=== PATIENT | male | born 1965 | race Two or more races ===

== ENCOUNTER 2024-04-09 16:46 | Emergency (ER) | payer BC, MEDICAID, OTHER ==
[~2024-04-09] VITALS: Ht 170.2 cm; Wt 102.3 kg
[2024-04-09 16:50] VITALS: BP 138/106; PULSE 85; RESP 18; O2SAT 96
--- NOTE | 2024-04-09 17:35 | ED.PDOC ---
History of Present Illness HPI Comments 59-year-old male presents with significant other for complaint of open wound to left forearm around elbow region, today. Patient comments on wound sutures coming apart after having them placed during a skin cancer removal procedure that was performed by his education and training manager, today. He comments only lying on his couch when said sutures came apart and his wound haven been actively bleeding since. He denies having any additional associated symptoms at this time. Chief Complaint: Wound Check Time Seen by MD: 17:00 Reviewed Notes: Nurses Notes, Medications, Allergies Allergies: Coded Allergies: NO KNOWN ALLERGIES (Unverified , 04/09/24) Information Source: Patient Mode of Arrival: Ambulatory Severity: Moderate Timing: Hours Duration: Since onset Prehospital treatment: None Past Medical History PAST MEDICAL HISTORY: Cancer (Skin cancer) Surgical History: Denies all surgeries Family History Family History: Reviewed,noncontributory to illness, No family hx of Cancer, No family hx of DM, No family hx of Heart esther, No family hx of HTN, No family hx ofKidney esther, No family hx of Liver esther, No family hx of Lung esther, No family hx of Stroke Social History Smoker: Non-Smoker Alcohol: Denies ETOH Use Drugs: Denies Drug Use Lives In: Home Constitutional: denies: chills, diaphoresis, fatigue, fever, malaise, sweats, weakness, others EENTM: denies: blurred vision, double vision, ear bleeding, ear discharge, ear drainage, ear pain, ear ringing, eye pain, eye redness, hearing loss, mouth pain, mouth swelling, nasal discharge, nose bleeding, nose congestion, nose pain, photophobia, tearing, throat pain, throat swelling, voice changes, others Respiratory: denies: cough, hemoptysis, orthopnea, SOB at rest, shortness of breath, SOB with excertion, stridor, wheezing, others Cardiovascular: denies: chest pain, dizzy spells, diaphoresis, Dyspnea on exertion, edema, irregular heart beat, left arm pain, lightheadedness, palpitations, PND, syncope, others Gastrointestinal: denies: abdomen distended, abdominal pain, blood streaked bowels, constipated, diarrhea, dysphagia, difficulty swallowing, hematemesis, melena, nausea, poor appetite, poor fluid intake, rectal bleeding, rectal pain, vomiting, others Genitourinary: denies: burning, dysuria, flank pain, frequency, hematuria, incontinence, penile discharge, penile sore, pain, testicle pain, testicle swelling, urgency, others Neurological: denies: dizziness, fainting, headache, left sided numbness, left sided weakness, numbness, paresthesia, pre-existing deficit, right sided numbness, right sided weakness, seizure, speech problems, tingling, tremors, weakness, others Musculoskeletal: denies: back pain, gout, joint pain, joint swelling, muscle pain, muscle stiffness, neck pain, others Integumetry: reports: wounds (Dehisced surgical site on lateral left forearm.); denies: bruises, change in color, change in hair/nails, dryness, laceration, lesions, lumps, rash, others Allergic/Immunocompromised: denies: Difficulty Healing, Frequent Infections, Hives, Itching, others Hematologic/Lymphatic: denies: anemia, blood clots, easy bleeding, easy bruising, swollen glands, others Endocrine: denies: excessive hunger, excessive sweating, excessive thirst, excessive urination, flushing, intolerance to cold, intolerance to heat, unexplained weight gain, unexplained weight loss, others Psychiatric: denies: anxiety, bipolar disorder, depression, hopeless, panic d isorder, schizophrenia, sleepless, suicidal, others All Other Systems: Reviewed and Negative (Negative unless otherwise stated above or in HPI) Physical Exam General Appearance: No Apparent Distress (Patient was in no distress at time of evaluation.), Normal HEENT: Normal ENT Inspection, Pharynx Normal, TMs Normal Neck: Full Range of Motion, Non-Tender, Normal, Normal Inspection Respiratory: Chest Non-Tender, Lungs Clear, No Accessory Muscle Use, No Respiratory Distress, Normal Breath Sounds Cardiovascular: No Edema, No JVD, No Murmur, No Gallop, Normal Peripheral Pulses, Regular Rate/Rhythm Breast Exam: Deferred Gastrointestinal: No Organomegaly, Non Tender, No Pulsatile Mass, Normal Bowel Sounds, Soft Genitalia: Deferred Pelvic: Deferred Rectal: Deferred Extremities: No calf tenderness, Normal capillary refill, Normal inspection, Normal range of motion, Non-tender, No pedal edema Neurologic: Alert, No Motor Deficits, Normal Affect, Normal Mood, No Sensory Deficits Cerebellar Function: Normal Reflexes: Normal Skin: Other (Patient displays a 3 cm centrally dehisced incision site to his lateral left forearm. Three sutures remain as the central region has lost at least one suture. Active bleed at time of evaluation.) Lymphatic: No Adenopathy Was a procedure done? Was a procedure done?: Yes Sedation Sedation?: No Other Procedure Notes 5 cc of 1% lidocaine was utilized for local anesthesia and hemostasis. Sterile field was placed. Copious irrigation performed. Two 4-0 Ethilon sutures were placed in a simple interrupted fashion to close the wound. Minimal blood loss. Patient tolerated procedure well. Clean dressing applied. Differential Dx Considerations may include: Postprocedure complication X-Ray, Labs, Meds, VS Vital Signs Date Time Temp Pulse Resp B/P (MAP) Pulse Ox O2 Delivery O2 Flow Rate FiO2 04/09/24 16:50 97.4 85 18 138/106 (117) 96 X-Ray, Labs, Meds, VS Comment Patient tolerated procedure well. Advised patient to continue follow up as directed by education and training manager with respect to wound care and suture removal. Time of 1ST Reevaluation: 19:02 Reevaluation 1ST: Improved Consultation: PCP, Other (Dermatology) Patient Education/Counseling: Diagnosis, Treatment Family Education/Counseling: Diagnosis, Treatment Departure 1 Departure Time of Disposition: 19:03 Impression: Primary Impression: Postoperative complication Additional Impression: Burst sutures Disposition: 01 HOME / SELF CARE / HOMELESS Condition: Stable Additional Instructions: Advised patient to continue with care directed by a education and training manager with respect to antibiotics, pain medication and follow up evaluation. Discharged With: Self, Spouse Critical Care Note Critical Care Time?: No Stability Stability form required: No Heart Score Heart Score: Heart Score Response (Comments) Value History N/A 0 EKG N/A 0 Age N/A 0 Risk Factors N/A 0 Troponin N/A 0 Total 0 I personally scribed for NATALIA VICK PAC ([email or web address]) on 04/09/24 at 17:35. Electronically submitted by Darrius Carney ([email or web address]). NATALIA VICK PAC Apr 09, 2024 17:35
== END 2024-04-09 20:25 | disposition left against medical advice (07) ==
LOC: ER 16:46
DX: S51.801A Unspecified open wound of right forearm, initial encounter (principal); T81.31XA Disruption of external operation (surgical) wound, not elsewhere classified, initial encounter; Z85.828 Personal history of other malignant neoplasm of skin; X58.XXXA Exposure to other specified factors, initial encounter; Y93.89 Activity, other specified; Y92.89 Other specified places as the place of occurrence of the external cause; Y99.8 Other external cause status